=== PATIENT | male | born 1930 | race Caucasian/White ===

== ENCOUNTER 2017-05-08 13:18 | Outpatient (CLI) | payer MEDICARE ==
--- NOTE | 2017-05-08 16:20 | ULT ---
BILATERAL CAROTID DUPLEX ULTRASOUND: 05/08/17 HISTORY: Dizziness, near syncope. TECHNIQUE: [place] scale ultrasound with color flow and spectral doppler imaging of the extracranial carotid arter y system is performed bilaterally. FINDINGS: There is plaque formation on either side. The peak systolic velocity in the right ICA measures 101 cm/s with an end diastolic velocity of 23 c m/s and a systolic ratio of 1.26. The peak systolic velocity in the left ICA measures 72 cm/s with an end diastolic velocity of 14 cm/ s and a systolic ratio of 0.75. Flow in both vertebral arteries remains antegrade. IMPRESSION: No evidence of hemodynamically significant stenosis. POS: [facility]
== END 2017-05-08 13:19 | disposition home or self-care (01) ==
LOC: ULT 13:18
PROVIDERS: ATTEND Family Medicine
DX: R55 Syncope and collapse (principal); R42 Dizziness and giddiness
CPT/HCPCS: 93880

== ENCOUNTER 2017-05-27 12:28 | Outpatient (CLI) | payer MEDICARE ==
--- NOTE | 2017-05-27 15:43 | MRI ---
MRI BRAIN WITH AND WITHOUT CONTRAST: HISTORY: Ataxia. COMPARISON: No prior comparison. FINDINGS: There is atrophy of the brain parenchyma, which may be age related. There is no evidence of ventricu lomegaly. Minimal chronic microvascular ischemic disease is present. No intracranial hemorrhagic redd sceptibility or acute territorial infarction. No evidence of an enhancing intraaxial mass. Skull ba se flow voids are maintained. [place] intraocular lenses are absent. There is mild bilateral mastoid fluid. IMPRESSION: No acute intracranial abnormalities. POS: [facility]
== END 2017-05-27 12:29 | disposition home or self-care (01) ==
LOC: MRI 12:28
PROVIDERS: ATTEND Psychiatry & Neurology Neurology
DX: R27.0 Ataxia, unspecified (principal)
CPT/HCPCS: 70553